=== PATIENT | male | born 1985 | race Caucasian/White ===

== ENCOUNTER 2021-01-26 15:44 | Outpatient (REF) | payer MEDICAID, SELFPAY ==
[2021-01-26 22:11] LABS: Calculated LDL 59 mg/dL (<100); Cholesterol 134 mg/dL (<200); HDL Cholesterol 49 mg/dL (40-60); TSH 2.04 uIU/mL (0.36-3.74); Triglyceride 133 mg/dL (<150)
[2021-01-28 10:01] LABS: HIV-1/2 Ag & Ab Screen Negative (Negative)
[2021-01-28 12:03] LABS: Hepatitis A Antibody IgM Negative (Negative); Hepatitis B Core Antibody Negative (Negative); Hepatitis B surface Ag Negative (Negative); Hepatitis C Ab w Rflx HCV PCR Negative (Negative)
== END 2021-01-26 15:45 | disposition home or self-care (01) ==
LOC: NCHCN 15:44
PROVIDERS: Visit Provider Nurse Practitioner Family
DX: Z11.3 Encounter for screening for infections with a predominantly sexual mode of transmission (principal); Z13.220 Encounter for screening for lipoid disorders; Z13.29 Encounter for screening for other suspected endocrine disorder; E11.9 Type 2 diabetes mellitus without complications; K70.30 Alcoholic cirrhosis of liver without ascites; F10.20 Alcohol dependence, uncomplicated
CPT/HCPCS: 80061; 86704; 86709; 86803; 87340; 87389; 84443

== ENCOUNTER 2021-02-24 20:52 | Outpatient (REF) | payer MEDICAID, SELFPAY ==
[2021-02-24 22:32] LABS: Microalb ug/mg Crea 7.4 ug/mg Cr
== END 2021-02-24 20:53 | disposition home or self-care (01) ==
LOC: NCHCN 20:52
PROVIDERS: Visit Provider Nurse Practitioner Family
DX: E11.9 Type 2 diabetes mellitus without complications (principal)
CPT/HCPCS: 82043; 82570

== ENCOUNTER 2021-05-11 15:00 | Outpatient (REF) | payer MEDICAID, SELFPAY ==
[2021-05-11 21:22] LABS: HCT 45.1 % (40.0-50.0); MCH 33.6 pg (27.0-33.0); MCHC 35.5 % (32.0-36.0); MCV 94.7 fL (80-95); MPV 12.2 fL (8.0-11.0); RBC 4.76 10^6/uL (4.36-5.78); RDW 11.4 % (11.8-14.1); RDW-SD 39.3 fL; WBC 5.93 10^3/uL (4.4-10.8)
[2021-05-11 21:23] LABS: Platelet Count 106 10^3/uL (130-400)
[2021-05-11 21:42] LABS: AST 55 U/L (15-37); Albumin 3.5 g/dL (3.4-5.0); Alkaline Phosphatase 186 U/L (46-116); Anion Gap 8.6 mmol/L (3-11); BUN 8 mg/dL (7-18); Bilirubin, Total 1.6 mg/dL (0.2-1.0); CO2 27.4 mmol/L (21.0-32.0); CREATININE 0.7 mg/dL (0.70-1.30); Calcium 8.8 mg/dL (8.5-10.1); Chloride 101 mmol/L (98-107); Glucose 252 mg/dL (74-106); Potassium 3.9 mmol/L (3.5-5.1); Sodium 137 mmol/L (136-145); Total Protein 7.4 g/dL (6.4-8.2)
[2021-05-11 21:47] LABS: Prothrombin Time 12.5 sec (9.3-11.0)
[2021-05-11 21:49] LABS: INR 1.2 (0.9-1.1)
[2021-05-11 21:56] LABS: ALT 91 U/L (16-63)
== END 2021-05-11 15:01 | disposition home or self-care (01) ==
LOC: NCHCN 15:00
PROVIDERS: Visit Provider Nurse Practitioner Family
DX: K70.30 Alcoholic cirrhosis of liver without ascites (principal)
CPT/HCPCS: 80053; 85027; 85610

== ENCOUNTER 2022-06-21 11:42 | Outpatient (REF) | payer MEDICAID, SELFPAY ==
[2022-06-21 15:07] LABS: HCT 45.5 % (40.0-50.0); HGB 16.3 g/dL (13.5-17.5); MCH 34.2 pg (27.0-33.0); MCHC 35.8 % (32.0-36.0); MCV 96 fL (80-95); MPV 11.5 fL (8.0-11.0); Platelet Count 105 10^3/uL (130-400); RBC 4.76 10^6/uL (4.36-5.78); RDW 11.3 % (11.8-14.1); WBC 6.83 10^3/uL (4.4-10.8)
[2022-06-21 15:19] LABS: INR 1.1 (0.9-1.1); Prothrombin Time 11.2 sec (9.3-11.0)
[2022-06-21 15:34] LABS: ALT 58 U/L (16-63); AST 47 U/L (15-37); Albumin 3.2 g/dL (3.4-5.0); Alkaline Phosphatase 243 U/L (46-116); Anion Gap 7.8 mmol/L (3-11); BUN 11 mg/dL (7-18); Bilirubin, Total 0.9 mg/dL (0.2-1.0); CO2 24.2 mmol/L (21.0-32.0); CREATININE 0.6 mg/dL (0.70-1.30); Calcium 9.2 mg/dL (8.5-10.1); Chloride 102 mmol/L (98-107); Cholesterol 150 mg/dL (<200); Estimated GFR 126.72 (mL/min/1.73m2); Glucose 188 mg/dL (74-106); HDL Cholesterol 32 mg/dL (40-60); Potassium 4.2 mmol/L (3.5-5.1); Sodium 134 mmol/L (136-145); Triglyceride 404 mg/dL (<150)
[2022-06-21 15:46] LABS: COMMENT (LAB VIEW ONLY) 96.32 mg/dL; Microalb ug/mg Crea 8.1 ug/mg Cr
[2022-06-21 15:55] LABS: LDL CHOLESTEROL 45 mg/dL (<100)
[2022-06-21 21:01] LABS: Abs Immature Grans 0.02 10^3/uL (0.0-0.06); Absolute Basophil Count 0.05 10^3/uL (0.0-0.2); Absolute Eosinophil Count 0.15 10^3/uL (0.0-0.7); Absolute Lymphocyte Count 1.99 10^3/uL (1.2-3.4); Absolute Monocyte Count 0.71 10^3/uL (0.1-0.8); Absolute Neutrophil Count 4.02 10^3/uL (1.2-6.7); Basophils % 0.7; Eosinophils % 2.2; Immature Grans % 0.3; Lymphocytes % 28.7; Monocytes % 10.2; Neutrophils % 57.9
== END 2022-06-21 11:43 | disposition home or self-care (01) ==
LOC: NCHCN 11:42
PROVIDERS: Visit Provider Nurse Practitioner Family
DX: K70.30 Alcoholic cirrhosis of liver without ascites (principal); E66.8 Other obesity; E11.9 Type 2 diabetes mellitus without complications
CPT/HCPCS: 80053; 80061; 83721; 85027; 82043; 82570; 85007; 85610

== ENCOUNTER 2023-08-09 15:52 | Outpatient (REF) | payer OTHER, SELFPAY ==
[2023-08-09 18:03] LABS: ALT 71 U/L (16-63); AST 71 U/L (15-37); Albumin 3.1 g/dL (3.4-5.0); Alkaline Phosphatase 202 U/L (46-116); Anion Gap 9.7 mmol/L (3-11); BUN 12 mg/dL (7-18); Bilirubin, Total 1.4 mg/dL (0.2-1.0); CO2 23.3 mmol/L (21.0-32.0); CREATININE 0.8 mg/dL (0.70-1.30); Calcium 9.5 mg/dL (8.5-10.1); Calculated LDL 68 mg/dL (<100); Chloride 102 mmol/L (98-107); Cholesterol 135 mg/dL (<200); Estimated GFR 115.45 (mL/min/1.73m2); Folate 9.2 ng/mL (8.6-20.0); Glucose 288 mg/dL (74-106); HDL Cholesterol 43 mg/dL (40-60); Magnesium 1.3 mg/dL (1.8-2.4); Sodium 135 mmol/L (136-145); Total Protein 7.8 g/dL (6.4-8.2); Triglyceride 122 mg/dL (<150); Vitamin B12 776 pg/mL (193-986)
== END 2023-08-09 15:53 | disposition home or self-care (01) ==
LOC: NCHCN 15:52
PROVIDERS: Visit Provider Nurse Practitioner Family
DX: E11.9 Type 2 diabetes mellitus without complications (principal); K70.30 Alcoholic cirrhosis of liver without ascites
CPT/HCPCS: 80053; 80061; 82607; 82746; 83036; 83735

== ENCOUNTER 2023-09-12 11:08 | Outpatient (REF) | payer OTHER, SELFPAY ==
[2023-09-12 16:00] LABS: COMMENT (LAB VIEW ONLY) 102.45 mg/dL; Microalb ug/mg Crea 6.6 ug/mg Cr
== END 2023-09-12 11:09 | disposition home or self-care (01) ==
LOC: NCHCN 11:08
PROVIDERS: Visit Provider Nurse Practitioner Family
DX: E11.9 Type 2 diabetes mellitus without complications (principal)
CPT/HCPCS: 82043; 82570